=== PATIENT | female | born 1945 | race Caucasian/White ===

== ENCOUNTER 2019-07-01 20:15 | Inpatient (IN) | payer MEDICARE ==
--- NOTE | 2019-07-01 21:09 | ED ---
Influenza-Like Illness - HPI Summary HPI Summary: Patient complains of general weakness, lightheadedness, productive cough, bilateral upper abdominal pain, decreased by mouth intake, persistent nausea or vomiting 4 days. Recently diagnosed with pneumonia at [place] and started on Augmentin. Denies known fever, sore throat, headache, CP, SOB, change in urine , change in BM, vaginal symptoms. Medical history is HTN, chronic pain, anxiety , DM. Positive smoker. - History of Current Complaint Chief Complaint: EDGeneral Time Seen by Provider: 07/01/19 21:06 Hx Obtained From: Patient Onset/Duration: Gradual Onset, Lasting Days Severity: Moderate Associated Signs & Symptoms: Cough, Vomiting - Allergy/Home Medications Allergies/Adverse Reactions: Allergies Allergy/AdvReac Type Severity Reaction Status Date / Time fluoxetine Allergy Severe See Comment Verified 07/02/19 02:58 NSAIDS (Non-Steroidal Allergy Severe See Comment Verified 07/02/19 02:58 Anti-Inflamma sertraline Allergy Severe See Comment Verified 07/02/19 02:58 venlafaxine Allergy Severe See Comment Verified 07/02/19 02:58 MS Sulfa Drugs [Sulfa Drugs] Allergy Unknown Unknown Verified 07/01/19 23:40 Reaction Details novacain Allergy Severe Anaphylatic Uncoded 07/01/19 23:40 Shock sleep aide Allergy Severe renal Uncoded 07/01/19 23:40 Home Medications: Home Medications Amoxicillin 1 tab PO BID 07/02/19 [History Confirmed 07/02/19] Atorvastatin* [Lipitor*] 80 mg PO 1700 07/02/19 [History Confirmed 07/02/19] Lisinopril/Hydrochlorothiazide [Lisinopril-Hctz 20-12.5 mg Tab] 1 each PO DAILY 07/02/19 [History Confirmed 07/02/19] Torsemide 5 mg PO DAILY 07/02/19 [History Confirmed 07/02/19] metFORMIN* [Glucophage 500 MG TAB *] 500 mg PO DAILY 07/02/19 [History Confirmed 07/02/19] PMH/Surg Hx/FS Hx/Imm Hx Endocrine/Hematology History: Reports: Hx Diabetes - "PRE DIABETES" Denies: Hx Thyroid Disease Cardiovascular History: Reports: Hx Hypertension - since [place] Respiratory History: Reports: Hx Asthma History: Denies: Hx Dialysis Musculoskeletal History: Reports: Hx Arthritis, Hx Back Problems Sensory History: Reports: Hx Contacts or Glasses Opthamlomology History: Reports: Hx Contacts or Glasses EENT History: Denies: Hx Deafness Neurological History: Denies: Hx Dementia - Cancer History Cancer Type, 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 [place] in Uterus (cancerous) Hx Anesthesia Reactions: No Infectious Disease History: No Infectious Disease History: Denies: Traveled Outside the [place] in Last 30 Days - Family History Known Family History: Positive: Non-Contributory - Social History Alcohol Use: Rare Substance Use Type: Reports: None Smoking Status (MU): Never Smoked Tobacco Review of Systems Constitutional: Negative Eyes: Negative ENT: Negative Cardiovascular: Negative Respiratory: Negative Positive: Abdominal Pain, Vomiting, Nausea Genitourinary: Negative Musculoskeletal: Negative Skin: Negative Positive: Weakness Psychological: Normal All Other Systems Reviewed And Are Negative: Yes Physical Exam - Summary Physical Exam Summary: Tender in the upper quadrants of abdomen. Abdominal exam otherwise unremarkable. Lung sounds clear to auscultation bilaterally. RRR. Nuero exam normal. Triage Information Reviewed: Yes Vital Signs On Initial Exam: Initial Vitals Temp Pulse Resp BP Pulse Ox 97.4 F 104 18 89/51 96 07/01/19 20:29 07/01/19 20:29 07/01/19 20:29 07/01/19 20:29 07/01/19 20:29 Vital Signs Reviewed: Yes Appearance: Positive: Well-Appearing Skin: Positive: Warm Head/Face: Positive: Normal Head/Face Inspection Eyes: Positive: Normal Neck: Positive: Supple Respiratory/Lung Sounds: Positive: Clear to Auscultation Cardiovascular: Positive: Normal Abdomen Description: Positive: Other: Musculoskeletal: Positive: Normal Neurological: Positive: Normal Psychiatric: Positive: Normal AVPU Assessment: Alert - Rolette Coma Scale Best Eye Response: 4 - Spontaneous Best Motor Response: 6 - Obeys Commands Best Verbal Response: 5 - Oriented Coma Scale Total: 15 Procedures - Sedation Patient Received Moderate/Deep Sedation with Procedure: No Diagnostics - Vital Signs Vital Signs Temp Pulse Resp BP Pulse Ox 07/01/19 20:29 97.4 F 104 18 89/51 96 - Laboratory Result Diagrams: 07/02/19 09:31 07/02/19 06:51 Lab Statement: Any lab studies that have been ordered have been reviewed, and results considered in the medical decision making process. Flu Symptom Course/Dx - Course Course Of Treatment: Patient complains of general weakness, lightheadedness, productive cough, bilateral upper abdominal pain, decreased by mouth intake, persistent nausea or vomiting 4 days. Recently diagnosed with pneumonia at [place] and started on Augmentin. Denies known fever, sore throat, headache, CP , SOB, change in urine, change in BM, vaginal symptoms. Medical history is HTN , chronic pain, anxiety, DM. Positive smoker. Heart rate 104. Initial blood pressure 89/51. Labs otherwise unremarkable. WBC 12.6. Lactic 3.1. CRP 10. Creatinine 2.16. Troponins 0.082. Anion gap 12. Labs otherwise unremarkable. Chest x-ray negative. Ultrasound gallbladder negative. CT abdomen and pelvis negative. EKG sinus rhythm, heart rate 91, new onset ST depressions V4 through V6. Flu Negative. Admitted to Hospitalist. - Diagnoses Provider Diagnoses: Elevated troponin, Acute kidney injury, Systemic inflammatory response syndrome (SIRS) Discharge ED - Sign-Out/Discharge Documenting (check all that apply): Patient Departure - Discharge Plan Condition: Fair Disposition: ADMITTED TO [facility] - Billing Disposition and Condition Condition: FAIR Disposition: Admitted to [facility]
[2019-07-01] MEDS ORDERED: NS 0.9% 1000 ML** 1,000 ML IV ONE ×3 (21:22→22:53)
[2019-07-01] MEDS ORDERED: Ondansetron INJ* 2 MG/ML VIAL IV ONE (21:22)
[2019-07-01 21:49] LABS: Hematocrit 46 % (35-47); Hemoglobin 15.6 g/dL (12.0-16.0); Mean Corpuscular HGB Conc 34 g/dL (31-36); Mean Corpuscular Hemoglobin 35 pg (27-31); Mean Corpuscular Volume 102 fL (80-97); Mean Platelet Volume 9.7 fL (7.4-10.4); Platelet Count 127 10^3/uL (150-450); Red Blood Count 4.52 10^6 /uL (3.70-4.87); Red Cell Distribution Width 14 % (10-15); White Blood Count 12.6 10^3/uL (3.5-10.8)
[2019-07-01 22:01] LABS: INR 1.08 (0.82-1.09)
[2019-07-01 22:05] LABS: ALT 15 U/L (7-52); AST 33 U/L (13-39); Albumin 3.8 g/dL (3.2-5.2); Alkaline Phosphatase 84 U/L (34-104); Anion Gap 12 mmol/L (2-11); BUN/Creatinine Ratio 23.1 (8-20); Blood Urea Nitrogen 50 mg/dL (6-24); C Reactive Protein 10.15 mg/L (<8.01); CO2 Carbon Dioxide 24 mmol/L (22-32); Calcium 11.2 mg/dL (8.6-10.3); Chloride 104 mmol/L (101-111); EGFR Non-African American 22.3 (>60); Globulin 3.8 g/dL (2-4); Glucose 130 mg/dL (70-100); Potassium 3.7 mmol/L (3.5-5.0); Sodium 140 mmol/L (135-145); Total Protein 7.6 g/dL (6.4-8.9)
[2019-07-01 22:10] LABS: Troponin I 0.08 ng/mL (<0.03)
[2019-07-01 22:13] LABS: ABS Eosinophils 0.1 10^3/ul (0-0.6); ABS Monocytes 2.1 10^3/ul (0-0.8); ABS Neutrophils 7.4 10^3/ul (1.5-7.7); Eosinophil % 0.5 %; Lymphocyte % 23.6 %; Nucleated Red Blood Cells % 0.1
[2019-07-01 22:31] LABS: TSH (Thyroid Stimulating Horm) 0.62 mcIU/mL (0.34-5.60)
[2019-07-01 23:11] LABS: Troponin I 0.08 ng/mL (<0.03)
[2019-07-02 00:24] LABS: Erythrocyte Sed Rate 25 mm/Hr (0-29)
[2019-07-02 01:01] LABS: Urine Appearance Clear; Urine Bilirubin Negative (Negative); Urine Blood 1+ (Negative); Urine Color Yellow; Urine Glucose Negative (Negative); Urine Ketones Negative (Negative); Urine Nitrite Negative (Negative); Urine Protein Negative (Negative); Urine Urobilinogen Negative (Negative)
[2019-07-02 01:05] LABS: Urine Bacteria 1+ (Absent); Urine Red Blood Cell Trace(0-2/hpf) (Absent); Urine Squamous Epithelial Cell Present (Absent); Urine White Blood Cell Trace(0-5/hpf) (Absent)
[2019-07-02] MEDS ORDERED: cefTRIAXone(*) 1 GM in NS 0.9% 50 ML* 50 ML IVPB ONE (01:55)
[2019-07-02 02:03] LABS: Troponin I 0.08 ng/mL (<0.03)
[2019-07-02 02:32] LABS: Anion Gap 11 mmol/L (2-11); CO2 Carbon Dioxide 23 mmol/L (22-32); Calcium 9.6 mg/dL (8.6-10.3); Chloride 108 mmol/L (101-111); Sodium 142 mmol/L (135-145)
[2019-07-02 02:37] LABS: BUN/Creatinine Ratio 23.7 (8-20); Blood Urea Nitrogen 44 mg/dL (6-24); EGFR African American 32.1 (>60); EGFR Non-African American 26.6 (>60); Glucose 114 mg/dL (70-100)
[2019-07-02 03:40] LABS: Influenza A Molecular Negative (Negative); Influenza B Molecular Negative (Negative)
[2019-07-02] MEDS: traMADol TAB* 50 MG PO SCH ×4 (05:01→21:37)
[2019-07-02] MEDS: Hydrocodone/Acetamin 10/325 MG 1 TAB PO SCH ×5 (05:01→21:35)
[2019-07-02] MEDS: Heparin VIAL(*) 5000 UNITS/ML VIAL (FIVE THOUSAND) SUBCUT SCH ×3 (05:02→21:38)
[2019-07-02] MEDS: NS 0.9% 1000 ML** 1,000 ML IV SCH ×2 (05:02→21:40)
[2019-07-02 05:08] LABS: HDL Cholesterol 23.8 mg/dL
[2019-07-02 05:14] LABS: Troponin I 0.09 ng/mL (<0.03)
[2019-07-02] MEDS ORDERED: NS 0.9% 1000 ML** 1,000 ML IV ONE (05:28)
--- NOTE | 2019-07-02 05:33 | HP ---
CC: Dr. Simi Mcclain * ADMISSION HISTORY AND PHYSICAL: DATE OF ADMISSION: 07/02/19 PRIMARY CARE PHYSICIAN: Dr. Mcclain. CHIEF COMPLAINT: Generalized weakness. HISTORY OF PRESENT ILLNESS: This is a 74-year-old female with past medical history of morbid obesity; coronary artery disease, status post 6-vessel bypass graft in 2000 with what sounds like hereditary homocystinemia; hyperlipidemia; congestive heart failure; prediabetes, on metformin; chronic back pain, on multiple pain medications, was in her usual state of health up until April. In April, she was notified that she had bedbugs and she had it exterminated; however, the senior housing facility that she stays at threatened to evict her and since then she has been more depressed and has had decreased p.o. intake due to increased stress from threats of eviction. She had an episode of vomiting on Monday last week, and on , she was diagnosed with possible pneumonia at her doctor's office and was prescribed some amoxicillin. However, since the episode on Monday of vomiting, she has had decreased p.o. intake according to the friend and her neighbor Ms. Gricel Thomas, who was present at the bedside. The patient only had about 2 to 3 Ensure since the last week and 1 or 2 TV dinners. The patient also has been having diffuse abdominal pain, but no more episodes of vomiting. No other episodes of diarrhea. No urinary burning sensation or pain with urination. She has been having worsening back pain and back cramping, which is accompanied by some numbness in her feet, which has been ongoing since April as well. The patient overall has been a vague historian and keeps changing the time length on some of her symptoms stating anywhere from they started days ago to weeks and after repeat questioning states everything back to April. The patient otherwise denies any chest pain or palpitations or any other sick contacts or any fever, chills. She did have some cough which was diagnosed as pneumonia as of about a week ago and finished a 6-day course of amoxicillin that she was prescribed by Dr. Mcclain. PAST MEDICAL HISTORY: As mentioned, 1. Coronary artery disease with 6-vessel bypass graft, thought to be due to homocystinemia. 2. Hyperlipidemia. 3. Anxiety. 4. Insomnia. 5. Congestive heart failure based on the home medication of torsemide. 6. Chronic back pain with multiple opiate based pain medications. 7. Prediabetes, on metformin at home. 8. She has also had a history of acute kidney injury due to nonsteroidal anti- inflammatory medications in 2012, which has since then resolved. 9. 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 PAST SURGICAL HISTORY: Includes, 1. Coronary artery bypass graft, which was a 6-vessel bypass graft. 2. Left knee arthroscopy, which she states needs to be replaced. 3. A dropped lung in the right after her bypass surgery in 2000. HOME MEDICATIONS: The patient is currently on, 1. Amoxicillin 800 mg 1 tablet oral b.i.d.. 2. Ultram 100 mg p.o. q.6 hours. 3. Lisinopril/hydrochlorothiazide 1 tablet oral daily. 4. Lipitor 80 mg daily. 5. Metformin 500 mg oral daily. 6. Ambien 10 mg p.o. at bedtime p.r.n. 7. Colace 100 mg oral daily. 8. Folvite 1 tablet oral daily. 9. Aspirin 81 mg oral daily. 10. Torsemide 5 mg oral daily. 11. Norvasc 5 mg oral daily. 12. Lopressor 100 mg p.o. b.i.d.. 13. [place] 10/325 mg oral q.i.d. ALLERGIES: The patient is allergic multiple medications including ETODOLAC and IBUPROFEN, which were both NSAIDs, which cause renal damage. PROZAC, SERTRALINE and EFFEXOR cause nightmares. ROFECOXIB causes cardiac problem. SULFA ANTIBIOTICS causes unknown reaction, and NOVOCAINE cause anaphylactic shock and SLEEP AID also causes her to have renal problem. FAMILY HISTORY: Positive for mother, who of heart disease at age 44 and father of lung cancer in his 70s. SOCIAL HISTORY: Denies any smoking, alcohol, or drug use. 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 She is currently retired and and lives alone in a senior housing. She designates her daughter Yohana Delgado as her healthcare proxy, and also wanted Gricel Thomas, her neighbor, as secondary healthcare proxy as well. Gricel was at bedside and gave her number to be . She also requested to be a full code. REVIEW OF SYSTEMS: A 14-point review of systems did not reveal any information other than what is mentioned in the HPI. PHYSICAL EXAMINATION GENERAL: The patient is awake, alert, oriented x3, does not appear to be in any acute distress. VITAL SIGNS: Temperature was noted to be 97.4, BP was noted to be 82/70, heart rate 94, respiration rate 23, saturating 96% on room air. HEAD AND NECK: Atraumatic, normocephalic. Bilateral pupils reactive. Oral mucosa was moist. Neck supple. No jugular venous distention. LUNGS: Clear to auscultation bilaterally. No wheezing, rhonchi or rales. HEART: S1, S2. Regular rate and rhythm. ABDOMEN: Soft, nontender, nondistended. EXTREMITIES: No cyanosis, clubbing or edema. LABORATORY DATA AND DIAGNOSTIC STUDIES: CBC shows minimally elevated white count at 12.6, hemoglobin and hematocrit stable, platelet count was minimally decreased at 127. Coagulation profile shows INR of 1.08. Comprehensive metabolic panel was significant for elevated BUN at 50 and creatinine elevated at 2.16. BUN and creatinine ratio was noted to be 23.1. Lactic acid elevated at 3.1. Calcium elevated at 11.2. Troponin was elevated at 0.08. C-reactive protein elevated at 10.15. Rest of the LFTs were within normal limits. Urinalysis was positive for leuk esterase, negative for any nitrite, positive for blood, and multiple hyaline casts were also present. CT chest, abdomen, and pelvis was read essentially as no CT pathology of the chest and there is colonic diverticulosis without evidence of acute diverticulitis in the abdomen and no other acute pathology in the abdomen is also noted. Gallbladder ultrasound was showing no acute sonographic pathology as well. EKG showed some ST segment depression in leads I, II and lateral lead as well, which was not present in the old EKG from 2013. IMPRESSION: This is a 74-year-old female with a history of coronary artery disease, status post multivessel bypass disease; hypertension; dyslipidemia; prediabetes, here with decreased p.o. intake for over a week and noted to have generalized weakness, acute kidney injury, and minimally elevated troponin with diffuse ST-segment depression on EKG. ASSESSMENT AND PLAN: 1. Generalized weakness, likely secondary to dehydration. We will get physical therapy evaluation after IV hydration. 2. Acute kidney injury, likely secondary to dehydration. Continue IV fluids. The patient's repeat creatinine is already showing much significant improvement from her baseline. 3. Lactic acidosis secondary to dehydration. Continue with IV hydration. 4. Elevated troponin with EKG changes. We will consider cardiology consult and an echocardiogram to evaluate for overall cardiac status, although it is possible that the patient's elevated troponin is due to her renal dysfunction and decreased clearance of troponin rather than a significant elevation from cardiac disease. Rest of the treatment plan regarding this status would be based on family nurse's input to see if the patient would benefit from any stress test. 5. History of hypertension, but currently hypotensive. We will continue with IV hydration. We can consider holding her BP medications. 6. History of congestive heart failure, currently not in failure. Follow up echocardiogram. 7. History of prediabetes. We will check an A1c level and hold metformin in light of acute kidney injury. Sugars are not elevated enough to warrant any insulin at this point or fingerstick monitoring. 8. History of dyslipidemia. Continue statin and check a lipid profile fasting in the morning. 9. History of chronic back pain. We will continue home pain medications. 10. DVT prophylaxis with subcu heparin. 11. Code status: The patient wishes to be a full code and primary surrogate decision maker would be her daughter Yohana and secondary would be her neighbor Gricel. [id number]/[facility] #: [id number] MILES
[2019-07-02 07:21] LABS: BUN/Creatinine Ratio 22.3 (8-20); EGFR African American 32.5 (>60); EGFR Non-African American 26.9 (>60); Potassium 3.4 mmol/L (3.5-5.0)
[2019-07-02] MEDS ORDERED: Perflutren Lipid Microsphere* 3 ML VIAL ONE (08:24)
[2019-07-02 09:42] LABS: Hematocrit 44 % (35-47); Hemoglobin 14.9 g/dL (12.0-16.0); Mean Corpuscular HGB Conc 34 g/dL (31-36); Mean Corpuscular Hemoglobin 34 pg (27-31); Mean Corpuscular Volume 101 fL (80-97); Mean Platelet Volume 9.3 fL (7.4-10.4); Platelet Count 104 10^3/uL (150-450); Red Blood Count 4.35 10^6 /uL (3.70-4.87); Red Cell Distribution Width 14 % (10-15)
[2019-07-02 09:44] LABS: ABS Basophils 0.1 10^3/ul (0-0.2); ABS Eosinophils 0.1 10^3/ul (0-0.6); ABS Lymphocytes 3.4 10^3/ul (1.0-4.8); ABS Monocytes 2.2 10^3/ul (0-0.8); ABS Neutrophils 5.3 10^3/ul (1.5-7.7); Eosinophil % 1.2 %; Nucleated Red Blood Cells % 0.1
[2019-07-02] MEDS: Docusate CAP* 100 MG PO SCH (09:51)
[2019-07-02] MEDS: Aspirin 81 mg CHEW TAB* 81 MG TAB.CHEW PO SCH (09:52)
[2019-07-02] MEDS: Folic Acid TAB* 1 MG PO SCH (09:52)
[2019-07-02 10:20] LABS: Troponin I 0.08 ng/mL (<0.03)
[2019-07-02] MEDS: Metoprolol Tartrate TAB* 100 MG TAB PO SCH ×2 (10:43→21:23)
--- NOTE | 2019-07-02 11:24 | ECHO ---
*[facility]* [place] [address] Fax #: [phone] Transthoracic Echocardiogram Patient: Emily Joyce : 1945 Study Date: 07/02/2019 Age: 74 Gender: F HR: 98 bpm Height: 60 in /152.4 cm BSA: 2 m^2 Weight: 234.5 lb /106.6 kg BMI: 45.9 kg/m^2 *[employer]: * Divine Maldonado RDCS RN *Referring Physician: * Grupo Parekh *Reading Physician: * Timothy Mccabe MD Indications: Myocardial Infarction (new). History: Coronary artery disease. Risk factors: Hypertension. Diabetes mellitus. Obese. Labs, prior tests, procedures, and surgery: Coronary artery bypass grafting. Conclusions Summary: - Left ventricle: Systolic function is hyperdynamic. The estimated ejection fraction is 65-70%. Wall motion is normal; there are no regional wall motion abnormalities. - Mitral valve: There is trace to mild regurgitation. - Aortic valve: There is no evidence of stenosis. - Pericardium, extracardiac: There is no significant pericardial effusion. - Study data: No prior study is available for comparison. Study data: Transthoracic echocardiogram. Procedure: Transthoracic echocardiography was performed. Image quality was fair. The study was technically limited due to body habitus. Intravenous Definity 3 ml was administered to enhance imaging. Complete 2D, spectral Doppler, and color flow Doppler. Location: Bedside. Patient status: Inpatient. Patient room number: 446-01. No prior study is available for comparison. Rhythm: Normal sinus rhythm. Findings Left ventricle: The cavity size is normal. Wall thickness is mildly increased. Systolic function is hyperdynamic. The estimated ejection fraction is 65-70%. Wall motion is normal; there are no regional wall motion abnormalities. There is no consistent Doppler evidence of clinically significant diastolic dysfunction. Right ventricle: Not well visualized. Ventricular septum: Ventricular septal wall motion has a postoperative appearance. Left atrium: The atrium is normal in size. Right atrium: Not well visualized. The atrium is normal in size. Mitral valve: Not well visualized. The leaflets are mildly thickened. There is no evidence of stenosis. There is trace to mild regurgitation. Aortic valve: Not well visualized. The leaflets are mildly thickened. There is no evidence of stenosis. There is no significant regurgitation. Tricuspid valve: The leaflets are normal thickness. There is trace regurgitation. Pulmonic valve: Not well visualized. Aorta: Aortic root: The aortic root is not dilated. Ascending aorta: The ascending aorta is not visualized. Aortic arch: The aortic arch is not visualized. Pericardium: There is no significant pericardial effusion. Pulmonary arteries: Not well visualized. Systolic pressure can not be accurately estimated. Systemic veins: Inferior vena cava: Not well visualized. Measurements Left ventricle Value Ref Left atrium continued Value Ref STEPHANIE, LAX 3.8 cm 3.8 - 5.2 Vol/bsa, ES, 1-p 35 ml/m^2 11 - 40 PW, ED (H) 1.1 cm 0.6 - 0.9 A4C IVS/PW, ED 1.04 Vol/bsa, ES, A/L 32 ml/m^2 16 - 34 E', lat lucy, (L) 8.5 cm/sec >=10.0 TDI Right atrium Value Ref E/e', lat lucy, 10 SI dim, ES, A4C 5.3 cm 3.4 - TDI 5.3 E', med lucy, (L) 6.0 cm/sec >=7.0 TDI Aortic valve Value Ref E/e', med lucy, 14 Lucy diam, ED 2.5 cm ---- ---- TDI Peak v, S 1.3 m/sec -------- E', avg, TDI 7.3 cm/sec VTI, S 24.5 cm ---- ---- E/e', avg, TDI 12 <=14 Mean grad, S 4.0 mm Hg - ------- Peak grad, S 7.0 mm Hg -------- LVOT Value Ref LVOT/AV, VTI ratio 0.84 -------- Peak ni, S 1.14 m/sec VTI, S 20.6 cm Mitral valve Value Ref Peak grad, S 5 mm Hg Peak E 0.86 m/sec -------- Mean grad, S 3 mm Hg Peak A 1.01 m/sec -------- Decel time 275 ms -------- Ventricular septum Value Ref Peak grad, D 3.0 mm Hg -------- IVS, ED (H) 1.1 cm 0.6 - 0.9 Peak E/A ratio 0.9 -------- Left atrium Value Ref Aortic root Value Ref AP dim, ES (H) 4.40 cm 2.70 - Root diam 3.1 cm <4.1 3.80 ML dim, A4C 4.3 cm SI dim, A4C 5.4 cm Legend: (L) and (H) carmella values outside specified reference range. Prepared and electronically signed by Timothy Mccabe MD 07/02/2019 11:24
[2019-07-02] MEDS ORDERED: Regadenoson* 0.4 MG/5 ML SYRINGE ONE (13:01)
[2019-07-02] MEDS ORDERED: Aminophylline IV* 25 MG/ML 10 ML VIAL ONE (14:13)
[2019-07-02] MEDS: Atorvastatin* 80 MG TAB PO SCH (17:19)
--- NOTE | 2019-07-02 20:39 | CONS ---
CARDIOLOGY CONSULTATION: DATE OF CONSULT: 07/02/19 INDICATION FOR CONSULTATION: Coronary artery disease, weakness, abnormal troponin. HISTORY OF PRESENT ILLNESS: The patient is a 74-year-old female with a history coronary artery disease, coronary artery bypass surgery in 2000, congestive heart failure, diabetes, who has been under tremendous amount of stress recently. She is having issues with her current living condition and might need to move. The patient has been recently treated for pneumonia. The patient came to the emergency room because of chest pain, feeling poorly, and just not having any energy. In the emergency room, an EKG showed normal sinus rhythm with T-wave inversions in lead V2 through V6 which is new compared to EKG in 2013. The patient also had minimally elevated troponin level with peak troponin of 0.09. When I saw the patient this morning, she was very teary and very upset. Her living condition is quite stressful to her. She reports that she has had increase stress in her life, also has had significant fatigue. She denied any true anginal type symptoms. She said that occasionally she will feel fullness in her chest but is unclear when this occurs or how long it lasts. PAST MEDICAL HISTORY: Coronary artery disease, hyperlipidemia, anxiety, insomnia, diabetes. PAST SURGICAL HISTORY: Coronary artery bypass surgery in 2000, knee arthroscopy in the past. OUTPATIENT MEDICATIONS: 1. Amoxicillin 800 mg b.i.d. 2. Lisinopril/hydrochlorothiazide 1 tablet a day. 3. Lipitor 80 mg a day. 4. Metformin 500 mg a day. 5. Colace 100 mg a day. 6. Aspirin 81 mg a day. 7. Torsemide 5 mg a day. 8. Norvasc 5 mg a day. 9. Lopressor 100 mg b.i.d. 10. Narcotic pain medication. ALLERGIES: She is intolerant of PROZAC, EFFEXOR, SULFA MEDICATIONS, and IBUPROFEN. FAMILY HISTORY: History of early coronary artery disease in her mother and father. SOCIAL HISTORY: She is a retired teacher. She is a . She lives in senior housing. She denies tobacco or alcohol use. She does not get any regular exercise. REVIEW OF SYSTEMS: Negative for fever and chills. Positive for weight gain. Negative for changes in bowel or bladder habit. Other 12-point review is unremarkable. PHYSICAL EXAM: Height is 5 feet, weight 250 pounds, temperature 97.2, heart rate is 71, blood pressure 131/64, respiratory rate is 16, oxygen saturation 99 % on room air. Sclerae anicteric. Oropharynx is pink without erythema. Carotids are 2+ without bruits. JVD is normal. Thyroid is normal. Cardiac Exam: S1, S2 without any murmurs, rubs, or gallops. PMI is normal. Lungs are difficult to auscultate as the patient has difficulty sitting up. Anteriorly, her lungs are clear. Abdomen is obese, soft, nontender, nondistended with normoactive bowel sounds. Extremities show 1+ edema. She has 2+ pulses throughout. The patient is awake, alert, and oriented. She moves all 4 extremities equally. DIAGNOSTIC STUDIES/LAB DATA: Chemistries within normal limits. BUN 41, creatinine 1.8. AST and ALT are normal. TSH is 0.62. Again, peak troponin level is 0.09. CBC is within normal limits. The patient had an echocardiogram today which demonstrated normal LV size and systolic function. Ejection fraction is 65%. No significant valvular abnormalities. The patient had a chemical nuclear stress test today. Her stress images showed normal perfusion throughout the myocardium. I reviewed the images personally. IMPRESSION: This is a 74-year-old female with a history of coronary artery disease, coronary artery bypass surgery, who came to the hospital because of fatigue and mental stress. Her EKG did show changes from her previous EKG in 2012, she had a minimally elevated troponin level. Her cardiac workup is essentially unremarkable. Her echocardiogram is normal. Her stress test is normal. At this point, I do not think any medication changes are necessary from a cardiac standpoint. The patient's cardiac status appears to be stable. I would concentrate on her social issues and her housing. The patient will follow up with her primary care physician. [id number]/[facility] [place] #: [id number] MILES
[2019-07-02] MEDS: Zolpidem TAB* 10 MG PO PRN (22:08)
[2019-07-03] MEDS: traMADol TAB* 50 MG PO SCH ×4 (02:19→21:35)
[2019-07-03] MEDS: cefTRIAXone(*) 1 GM in NS 0.9% 50 ML* 50 ML IVPB SCH (02:20)
[2019-07-03] MEDS: Heparin VIAL(*) 5000 UNITS/ML VIAL (FIVE THOUSAND) SUBCUT SCH ×3 (05:37→21:39)
[2019-07-03 05:43] LABS: BUN/Creatinine Ratio 18.8 (8-20); Calcium 8.9 mg/dL (8.6-10.3); EGFR African American 41.5 (>60); EGFR Non-African American 34.3 (>60); Potassium 3.6 mmol/L (3.5-5.0)
[2019-07-03 06:02] LABS: ABS Eosinophils 0.4 10^3/ul (0-0.6); ABS Lymphocytes 2.2 10^3/ul (1.0-4.8); ABS Monocytes 1.8 10^3/ul (0-0.8); ABS Neutrophils 3.1 10^3/ul (1.5-7.7); Eosinophil % 5.4 %; Hematocrit 37 % (35-47); Hemoglobin 12.3 g/dL (12.0-16.0); Lymphocyte % 29.4 %; Mean Corpuscular HGB Conc 34 g/dL (31-36); Mean Corpuscular Hemoglobin 34 pg (27-31); Mean Corpuscular Volume 102 fL (80-97); Mean Platelet Volume 9.4 fL (7.4-10.4); Platelet Count 87 10^3/uL (150-450); Red Blood Count 3.58 10^6 /uL (3.70-4.87); Red Cell Distribution Width 14 % (10-15); White Blood Count 7.5 10^3/uL (3.5-10.8)
[2019-07-03] MEDS: Aspirin 81 mg CHEW TAB* 81 MG TAB.CHEW PO SCH (08:25)
[2019-07-03] MEDS: Folic Acid TAB* 1 MG PO SCH (08:25)
[2019-07-03] MEDS: Docusate CAP* 100 MG PO SCH (08:25)
[2019-07-03] MEDS: Metoprolol Tartrate TAB* 100 MG TAB PO SCH ×2 (08:25→21:35)
[2019-07-03] MEDS: Hydrocodone/Acetamin 10/325 MG 1 TAB PO SCH ×4 (08:25→21:36)
--- NOTE | 2019-07-03 14:51 | PN ---
Subjective Date of Service: 07/03/19 Interval History: Ms. Joyce states that she feels "calmer" and is resting better. She states that her weakness if improved, although still present. She denies cough, fever, chills. She denies abd pain, n/v/d, dysuria, urinary frequency, urgency, retention. She is concerned about her living situation and believes that her landlord is attempting to evict her. She states she is feeling depressed, although improved from the day prior. No other complaints today. Objective Active Medications: Hydrocodone Bitart/Acetaminophen ([place] 10/325 (Nf)) [address] [facility] Last Admin: 07/03/19 13:03 Dose: 1 tab Aspirin (Aspirin 81 Mg Chew Tab*) [address] [facility] Last Admin: 07/03/19 08:25 Dose: 81 mg Atorvastatin Calcium (Lipitor*) [address] [facility] Last Admin: 07/02/19 17:19 Dose: 80 mg Docusate Sodium (Colace Cap*) [address] [facility] Last Admin: 07/03/19 08:25 Dose: 100 mg Folic Acid (Folvite Tab*) [address] [facility] Last Admin: 07/03/19 08:25 Dose: 1 mg Heparin Sodium (Porcine) (Heparin Vial(*)) 5,[address] [facility] Last Admin: 07/03/19 13:03 Dose: 5,000 units Sodium Chloride (Ns 0.9% 1000 Ml) 1,000 mls @ 100 mls/hr IV PER RATE [facility] Last Admin: 07/02/19 21:40 Dose: 100 mls/hr Ceftriaxone Sodium 1 gm/ (Sodium Chloride) 50 mls @ 100 mls/hr IVPB Q24H [facility] Last Admin: 07/03/19 02:20 Dose: 100 mls/hr Metoprolol Tartrate (Lopressor Tab*) [address] [facility] Last Admin: 07/03/19 08:25 Dose: 100 mg Tramadol HCl (Ultram*) [address] [facility] Last Admin: 07/03/19 14:26 Dose: 50 mg Zolpidem Tartrate (Ambien Tab*) 10 mg PO BEDTIME PRN PRN Reason: SLEEP Last Admin: 07/02/19 22:08 Dose: 10 mg Vital Signs: Temp Pulse Resp BP Pulse Ox 98.2 F 73 16 105/51 97 07/03/19 15:00 07/03/19 15:00 07/03/19 16:13 07/03/19 15:00 07/03/19 15:00 Oxygen Devices in Use Now: None Appearance: Ms. Joyce is an obese elderly white female who is sitting up in bed. She is resting comfortable and appears to be in no acute distress, although she is very tearful during our discussion. Eyes: No Scleral Icterus, PERRLA Ears/Nose/Mouth/Throat: NL Teeth, Lips, Gums, Clear Oropharnyx, Mucous Membranes Moist Neck: NL Appearance and Movements; NL JVP, Trachea Midline Respiratory: Symmetrical Chest Expansion and Respiratory Effort, Clear to Auscultation Cardiovascular: NL Sounds; No Murmurs; No JVD, RRR, No Edema Abdominal: NL Sounds; No Tenderness; No Distention, No Hepatosplenomegaly Extremities: No Edema, No Clubbing, Cyanosis Neurological: Alert and Oriented x 3 Result Diagrams: 07/03/19 05:01 07/03/19 05:01 Microbiology and Other Data: Microbiology 07/02/19 00:15 Urine Culture - Preliminary Urine Escherichia Coli 07/01/19 21:40 Aerobic Blood Culture - Preliminary Blood Venous No Growth Day 1 Anaerobic Blood Culture - Preliminary No Growth Day 1 07/01/19 21:40 Aerobic Blood Culture - Preliminary Blood Venous No Growth Day 1 Anaerobic Blood Culture - Preliminary No Growth Day 1 Assess/Plan/Problems-Billing Assessment: 74yof PMHx CAD 6 vessel CABG, HLD, anxiety, diagnosed with pre-diabetes treated with Metformin presented to the ER with generalized weakness, elevated troponins , ANTWAN, lactic acidosis. - Patient Problems (1) Generalized weakness Comment: -pt presents with generalized weakness, decreased appetite, depression -likely due to deconditioning with superimposed dehydration -PT working with patient- recommends [facility] -placement pending (2) ANTWAN (acute kidney injury) Comment: -pt presents with ANTWAN; has improved some with hydration -suspect pre-renal due to dehydration -possibly with underlying CKD -continue to monitor with IVF administration (3) Elevated troponin Comment: -troponin stable at 0.08-0.09 -EKG with mild ST depression I, II, avF, V2-V3 -denies CP -Echo: EF 65-70% without evidence of diastolic dysfunction or RWMA -ST: no defects or RWMA, low risk -cardiology consulted; thank you for recommendations, as follows: no indication for med change, cardiac status appears stable (4) Lactic acidosis Comment: -pt presents with lactic acidosis -no source of infection -afebrile, mild leukocytosis (resolved) -BC NGTD -suspect metformin; d/c metformin (5) Depression Comment: -frequently tearful throughout interview -suggest SSRI, and patient is agreeable -trial of Lexapro, starting today (6) Thrombocytopenia Comment: -no signs of bleeding -continue to monitor (7) Abnormal urinalysis Comment: -1+ LE, 1+ bacteria -UC shows E. coli, moderated CFU -pt asymptomatic -suspect colonization, therefore treatment not indicated (8) Eviction from dwelling Comment: -pt reports she is in process of being evicted -SW involved in care (9) CAD (coronary artery disease) Comment: -continue home asa, atorvastatin, metoprolol (10) Pre-diabetes Comment: -recent HA1c 6.0 -reportedly on metformin for pre-diabetes -will d/c this medication, as it is the suspected cause of lactic acidosis (11) Hyperlipidemia Comment: -continue atorvastatin (12) DVT prophylaxis Comment: -HSQ (13) Full code status Status and Disposition: Inpatient. Plan for d/c to [facility].
[2019-07-03] MEDS: Atorvastatin* 80 MG TAB PO SCH (16:12)
[2019-07-03] MEDS: Zolpidem TAB* 10 MG PO PRN (21:36)
[2019-07-04] MEDS: NS 0.9% 1000 ML** 1,000 ML IV SCH ×3 (00:36→23:56)
[2019-07-04] MEDS: traMADol TAB* 50 MG PO SCH ×4 (03:09→20:06)
[2019-07-04] MEDS: cefTRIAXone(*) 1 GM in NS 0.9% 50 ML* 50 ML IVPB SCH (03:10)
[2019-07-04] MEDS: Heparin VIAL(*) 5000 UNITS/ML VIAL (FIVE THOUSAND) SUBCUT SCH ×3 (05:30→20:07)
[2019-07-04 06:28] LABS: ABS Eosinophils 0.5 10^3/ul (0-0.6); ABS Lymphocytes 3.1 10^3/ul (1.0-4.8); ABS Monocytes 1.7 10^3/ul (0-0.8); ABS Neutrophils 2.9 10^3/ul (1.5-7.7); Eosinophil % 5.5 %; Hematocrit 37 % (35-47); Hemoglobin 12.1 g/dL (12.0-16.0); Lymphocyte % 38.1 %; Mean Corpuscular HGB Conc 33 g/dL (31-36); Mean Corpuscular Hemoglobin 34 pg (27-31); Mean Corpuscular Volume 104 fL (80-97); Nucleated Red Blood Cells % 0.2; Platelet Count 87 10^3/uL (150-450); Red Blood Count 3.52 10^6 /uL (3.70-4.87); Red Cell Distribution Width 14 % (10-15); White Blood Count 8.3 10^3/uL (3.5-10.8)
[2019-07-04 06:45] LABS: BUN/Creatinine Ratio 20.3 (8-20); Calcium 8.4 mg/dL (8.6-10.3); EGFR African American 49.5 (>60); EGFR Non-African American 40.9 (>60); Potassium 3.9 mmol/L (3.5-5.0)
[2019-07-04] MEDS: Escitalopram * 10 MG TAB PO SCH (08:13)
[2019-07-04] MEDS: Docusate CAP* 100 MG PO SCH (08:13)
[2019-07-04] MEDS: Folic Acid TAB* 1 MG PO SCH (08:13)
[2019-07-04] MEDS: Metoprolol Tartrate TAB* 100 MG TAB PO SCH ×2 (08:13→20:07)
[2019-07-04] MEDS: Hydrocodone/Acetamin 10/325 MG 1 TAB PO SCH ×4 (08:14→20:07)
[2019-07-04] MEDS: Aspirin 81 mg CHEW TAB* 81 MG TAB.CHEW PO SCH (08:14)
--- NOTE | 2019-07-04 15:59 | PN ---
Subjective Date of Service: 07/04/19 Interval History: Ms. Joyce was ambulating today. She reports that she is tired. She denies CP, but does c/o b/l LE fatigue at bedtime last night, which as since subsided. She continues to c/o some weakness, but notes improvement from admission. She started Lexapro this a.m., and has had no AE thus far. Objective Active Medications: Hydrocodone Bitart/Acetaminophen ([place] 10/325 (Nf)) 1 tab PO QID [facility] Last Admin: 07/04/19 12:06 Dose: 1 tab Aspirin (Aspirin 81 Mg Chew Tab*) 81 mg PO DAILY [facility] Last Admin: 07/04/19 08:14 Dose: 81 mg Atorvastatin Calcium (Lipitor*) 80 mg PO 1700 [facility] Last Admin: 07/03/19 16:12 Dose: 80 mg Docusate Sodium (Colace Cap*) 100 mg PO DAILY [facility] Last Admin: 07/04/19 08:13 Dose: 100 mg Escitalopram Oxalate (Lexapro *) 10 mg PO DAILY [facility] Last Admin: 07/04/19 08:13 Dose: 10 mg Folic Acid (Folvite Tab*) 1 mg PO DAILY [facility] Last Admin: 07/04/19 08:13 Dose: 1 mg Heparin Sodium (Porcine) (Heparin Vial(*)) 5,000 units SUBCUT Q8HR [facility] Last Admin: 07/04/19 12:06 Dose: 5,000 units Sodium Chloride (Ns 0.9% 1000 Ml) 1,000 mls @ 100 mls/hr IV PER RATE [facility] Last Admin: 07/04/19 12:06 Dose: 100 mls/hr Metoprolol Tartrate (Lopressor Tab*) 100 mg PO BID [facility] Last Admin: 07/04/19 08:13 Dose: 100 mg Tramadol HCl (Ultram*) 50 mg PO Q6H [facility] Last Admin: 07/04/19 14:05 Dose: 50 mg Zolpidem Tartrate (Ambien Tab*) 10 mg PO BEDTIME PRN PRN Reason: SLEEP Last Admin: 07/03/19 21:36 Dose: 10 mg Vital Signs: Temp Pulse Resp BP Pulse Ox 97.9 F 60 16 97/46 95 07/04/19 11:00 07/04/19 11:00 07/04/19 14:06 07/04/19 11:00 07/04/19 11:00 Oxygen Devices in Use Now: None Appearance: Ms. Joyce is an elderly white female who is laying flat in bed. She is breathing comfortably, in no acute distress. Intermittently tearful. Eyes: No Scleral Icterus, PERRLA Ears/Nose/Mouth/Throat: NL Teeth, Lips, Gums, Clear Oropharnyx, Mucous Membranes Moist Neck: NL Appearance and Movements; NL JVP, Trachea Midline Respiratory: Symmetrical Chest Expansion and Respiratory Effort, Clear to Auscultation Cardiovascular: NL Sounds; No Murmurs; No JVD, RRR, No Edema Abdominal: NL Sounds; No Tenderness; No Distention, No Hepatosplenomegaly Extremities: No Edema, No Clubbing, Cyanosis Neurological: Alert and Oriented x 3 Result Diagrams: 07/04/19 06:07 07/04/19 06:07 Microbiology and Other Data: Microbiology 07/02/19 00:15 Urine Culture - Preliminary Urine Escherichia Coli 07/01/19 21:40 Aerobic Blood Culture - Preliminary Blood Venous No Growth Day 1 Anaerobic Blood Culture - Preliminary No Growth Day 1 07/01/19 21:40 Aerobic Blood Culture - Preliminary Blood Venous No Growth Day 1 Anaerobic Blood Culture - Preliminary No Growth Day 1 Assess/Plan/Problems-Billing Assessment: 74yof PMHx CAD 6 vessel CABG, HLD, anxiety, diagnosed with pre-diabetes treated with Metformin presented to the ER with generalized weakness, elevated troponins , ANTWAN, lactic acidosis. - Patient Problems (1) Generalized weakness Comment: -pt presents with generalized weakness, decreased appetite -likely due to deconditioning with superimposed dehydration and depression -PT working with patient- recommends [facility] -OT consult ordered -placement pending (2) ANTWAN (acute kidney injury) Comment: -pt presents with ANTWAN; has improved some with hydration -suspect pre-renal due to dehydration -possibly with underlying CKD, although rapid improvement with hydration -continue to monitor with IVF administration (3) Elevated troponin Comment: -troponin elevated, but stable at 0.08-0.09 -EKG with mild ST depression I, II, avF, V2-V3 -denies CP -Echo: EF 65-70% without evidence of diastolic dysfunction or RWMA -ST: no defects or RWMA, low risk -cardiology consulted; thank you for recommendations, as follows: no indication for med change, cardiac status appears stable (4) Lactic acidosis Comment: -resolved; lactic acid 1.1 -pt presents with lactic acidosis -no source of infection -afebrile, mild leukocytosis (resolved) -BC NGTD -suspect metformin; d/c metformin (5) Depression Comment: -frequently tearful throughout interview -suggest SSRI, and patient is agreeable, but concerned, as she has h/o nightmares with anti-depressants -trial of Lexapro, starting today (6) Thrombocytopenia Comment: -no signs of bleeding -probably partially dilutional -continue to monitor (7) Abnormal urinalysis Comment: -1+ LE, 1+ bacteria -UC shows E. coli, moderated CFU -pt asymptomatic -suspect colonization, therefore treatment not indicated (8) Eviction from dwelling Comment: -pt reports she is in process of being evicted -SW involved in care (9) CAD (coronary artery disease) Comment: -continue home asa, atorvastatin, metoprolol (10) Pre-diabetes Comment: -recent HA1c 6.0 -reportedly on metformin for pre-diabetes -will d/c this medication, as it is the suspected cause of lactic acidosis -no indication for need for furhter medication at this time -follow up with primary care provider for repeat HA1c in future (11) Hyperlipidemia Comment: -continue atorvastatin (12) DVT prophylaxis Comment: -HSQ (13) Full code status Status and Disposition: Inpatient. Plan for d/c to [facility].
[2019-07-04] MEDS: Atorvastatin* 80 MG TAB PO SCH (16:02)
[2019-07-04] MEDS: Zolpidem TAB* 10 MG PO PRN (23:56)
[2019-07-05] MEDS: traMADol TAB* 50 MG PO SCH ×4 (03:23→20:30)
[2019-07-05] MEDS: Heparin VIAL(*) 5000 UNITS/ML VIAL (FIVE THOUSAND) SUBCUT SCH ×2 (05:27→14:16)
[2019-07-05] MEDS: Docusate CAP* 100 MG PO SCH (08:30)
[2019-07-05] MEDS: Escitalopram * 10 MG TAB PO SCH (08:30)
[2019-07-05] MEDS: Folic Acid TAB* 1 MG PO SCH (08:30)
[2019-07-05] MEDS: Aspirin 81 mg CHEW TAB* 81 MG TAB.CHEW PO SCH (08:31)
[2019-07-05] MEDS: Hydrocodone/Acetamin 10/325 MG 1 TAB PO SCH ×4 (08:31→20:29)
[2019-07-05] MEDS: Metoprolol Tartrate TAB* 100 MG TAB PO SCH ×2 (08:31→20:30)
--- NOTE | 2019-07-05 13:55 | PN ---
Subjective Date of Service: 07/05/19 Interval History: Ms. Joyce states she is still tired, but is feeling less weak today. She has been up walking and is eating and drinking well. She feels that her mood has improved and denies nightmares. No other complaints today. Objective Active Medications: Hydrocodone Bitart/Acetaminophen ([place] 10/325 (Nf)) 1 tab PO QID [facility] Last Admin: 07/05/19 08:31 Dose: 1 tab Aspirin (Aspirin 81 Mg Chew Tab*) 81 mg PO DAILY [facility] Last Admin: 07/05/19 08:31 Dose: 81 mg Atorvastatin Calcium (Lipitor*) 80 mg PO 1700 [facility] Last Admin: 07/04/19 16:02 Dose: 80 mg Docusate Sodium (Colace Cap*) 100 mg PO DAILY [facility] Last Admin: 07/05/19 08:30 Dose: 100 mg Escitalopram Oxalate (Lexapro *) 10 mg PO DAILY [facility] Last Admin: 07/05/19 08:30 Dose: 10 mg Folic Acid (Folvite Tab*) 1 mg PO DAILY [facility] Last Admin: 07/05/19 08:30 Dose: 1 mg Heparin Sodium (Porcine) (Heparin Vial(*)) 5,000 units SUBCUT Q8HR [facility] Last Admin: 07/05/19 05:27 Dose: 5,000 units Sodium Chloride (Ns 0.9% 1000 Ml) 1,000 mls @ 100 mls/hr IV PER RATE [facility] Stop: 07/05/19 21:00 Last Admin: 07/04/19 23:56 Dose: 100 mls/hr Metoprolol Tartrate (Lopressor Tab*) 100 mg PO BID [facility] Last Admin: 07/05/19 08:31 Dose: 100 mg Tramadol HCl (Ultram*) 50 mg PO Q6H [facility] Last Admin: 07/05/19 08:31 Dose: 50 mg Zolpidem Tartrate (Ambien Tab*) 10 mg PO BEDTIME PRN PRN Reason: SLEEP Last Admin: 07/04/19 23:56 Dose: 10 mg Vital Signs: Temp Pulse Resp BP Pulse Ox 97.3 F 56 17 103/61 97 07/06/19 04:00 07/06/19 04:00 07/06/19 08:08 07/06/19 04:00 07/06/19 04:00 Oxygen Devices in Use Now: None Appearance: Ms. Joyce is an obese, elderly white female who is sitting up in recliner with LE at floor. She appears comfortable, in no acute distress. Eyes: No Scleral Icterus, PERRLA Ears/Nose/Mouth/Throat: NL Teeth, Lips, Gums, Clear Oropharnyx, Mucous Membranes Moist Neck: NL Appearance and Movements; NL JVP, Trachea Midline Respiratory: Symmetrical Chest Expansion and Respiratory Effort, Clear to Auscultation Cardiovascular: NL Sounds; No Murmurs; No JVD, RRR Abdominal: NL Sounds; No Tenderness; No Distention, No Hepatosplenomegaly Extremities: No Edema, No Clubbing, Cyanosis Neurological: Alert and Oriented x 3 Result Diagrams: 07/06/19 05:32 07/06/19 05:32 Microbiology and Other Data: Microbiology 07/02/19 00:15 Urine Culture - Preliminary Urine Escherichia Coli 07/01/19 21:40 Aerobic Blood Culture - Preliminary Blood Venous No Growth Day 1 Anaerobic Blood Culture - Preliminary No Growth Day 1 07/01/19 21:40 Aerobic Blood Culture - Preliminary Blood Venous No Growth Day 1 Anaerobic Blood Culture - Preliminary No Growth Day 1 Assess/Plan/Problems-Billing Assessment: 74yof PMHx CAD 6 vessel CABG, HLD, anxiety, diagnosed with pre-diabetes treated with Metformin presented to the ER with generalized weakness, elevated troponins , ANTWAN, lactic acidosis. - Patient Problems (1) Generalized weakness Comment: -pt presents with generalized weakness, decreased appetite -likely due to deconditioning with superimposed dehydration and depression -PT working with patient- recommends [facility] -continue PT/OT -placement pending (2) ANTWAN (acute kidney injury) Comment: -pt presents with ANTWAN; continues to improve with IV hydration -suspect pre-renal due to dehydration -possibly with underlying CKD, although low suspicion d/t continued improvement with hydration -continue to monitor with IVF administration (3) Elevated troponin Comment: -troponin elevated, but stable at 0.08-0.09 -EKG with mild ST depression I, II, avF, V2-V3 -denies CP -Echo: EF 65-70% without evidence of diastolic dysfunction or RWMA -ST: no defects or RWMA, low risk -cardiology consulted; thank you for recommendations, as follows: no indication for med change, cardiac status appears stable (4) Lactic acidosis Comment: -resolved; lactic acid 1.1 -pt presents with lactic acidosis -no source of infection -afebrile, mild leukocytosis (resolved) -BC NGTD -suspect metformin; d/c metformin (5) Depression Comment: -frequently tearful throughout interview -suggest SSRI, and patient is agreeable, but concerned, as she has h/o nightmares with anti-depressants -trial of Lexapro, starting today (6) Thrombocytopenia Comment: -no signs of bleeding -probably partially dilutional -continue to monitor (7) Abnormal urinalysis Comment: -1+ LE, 1+ bacteria -UC shows E. coli, moderated CFU -pt asymptomatic -suspect colonization, therefore treatment not indicated (8) Eviction from dwelling Comment: -pt reports she is in process of being evicted -SW involved in care (9) CAD (coronary artery disease) Comment: -continue home asa, atorvastatin, metoprolol (10) Pre-diabetes Comment: -recent HA1c 6.0 -reportedly on metformin for pre-diabetes -will d/c this medication, as it is the suspected cause of lactic acidosis -no indication for need for furhter medication at this time -follow up with primary care provider for repeat HA1c in future (11) Hyperlipidemia Comment: -continue atorvastatin (12) DVT prophylaxis Comment: -HSQ (13) Full code status Status and Disposition: Inpatient. Plan for d/c to [facility].
[2019-07-05] MEDS: Atorvastatin* 80 MG TAB PO SCH (17:57)
[2019-07-05] MEDS: NS 0.9% 1000 ML** 1,000 ML IV SCH (20:18)
[2019-07-05] MEDS: Enoxaparin(*) 40 MG/0.4 ML SYR SUBCUT SCH (20:29)
[2019-07-05] MEDS: Zolpidem TAB* 10 MG PO PRN (21:41)
[2019-07-06] MEDS: traMADol TAB* 50 MG PO SCH ×4 (04:31→20:57)
[2019-07-06 05:53] LABS: ABS Eosinophils 0.4 10^3/ul (0-0.6); ABS Lymphocytes 2.6 10^3/ul (1.0-4.8); ABS Monocytes 1.1 10^3/ul (0-0.8); ABS Neutrophils 2.2 10^3/ul (1.5-7.7); Eosinophil % 6.9 %; Hematocrit 34 % (35-47); Hemoglobin 11.3 g/dL (12.0-16.0); Mean Corpuscular HGB Conc 34 g/dL (31-36); Mean Corpuscular Hemoglobin 35 pg (27-31); Mean Corpuscular Volume 104 fL (80-97); Mean Platelet Volume 8.5 fL (7.4-10.4); Platelet Count 100 10^3/uL (150-450); Red Blood Count 3.23 10^6 /uL (3.70-4.87); Red Cell Distribution Width 14 % (10-15); White Blood Count 6.4 10^3/uL (3.5-10.8)
[2019-07-06 06:13] LABS: Calcium 8.4 mg/dL (8.6-10.3); Potassium 4.5 mmol/L (3.5-5.0)
[2019-07-06 06:19] LABS: EGFR African American 62.2 (>60); EGFR Non-African American 51.4 (>60)
[2019-07-06] MEDS: Metoprolol Tartrate TAB* 100 MG TAB PO SCH ×2 (08:07→20:57)
[2019-07-06] MEDS: Docusate CAP* 100 MG PO SCH (08:07)
[2019-07-06] MEDS: Hydrocodone/Acetamin 10/325 MG 1 TAB PO SCH ×4 (08:07→20:55)
[2019-07-06] MEDS: Aspirin 81 mg CHEW TAB* 81 MG TAB.CHEW PO SCH (08:07)
[2019-07-06] MEDS: Folic Acid TAB* 1 MG PO SCH (08:07)
[2019-07-06] MEDS: Escitalopram * 10 MG TAB PO SCH (08:07)
[2019-07-06] MEDS ORDERED: NS 0.9% 1000 ML** 1,000 ML IV SCH (08:30)
--- NOTE | 2019-07-06 17:36 | PN ---
Subjective Date of Service: 07/06/19 Interval History: Ms. Joyce c/o occasional cough and denies fever, chills, dysuria. She has some mild increased urinary frequency, which is attributed to increased IVF. She is eager for d/c to [facility]. No other complaints today. Objective Active Medications: Hydrocodone Bitart/Acetaminophen ([place] 10/325 (Nf)) 1 tab PO QID [facility] Last Admin: 07/06/19 13:34 Dose: 1 tab Aspirin (Aspirin 81 Mg Chew Tab*) 81 mg PO DAILY [facility] Last Admin: 07/06/19 08:07 Dose: 81 mg Atorvastatin Calcium (Lipitor*) 80 mg PO 1700 [facility] Last Admin: 07/05/19 17:57 Dose: 80 mg Docusate Sodium (Colace Cap*) 100 mg PO DAILY [facility] Last Admin: 07/06/19 08:07 Dose: 100 mg Enoxaparin Sodium (Lovenox(*)) 40 mg SUBCUT BEDTIME [facility] Last Admin: 07/05/19 20:29 Dose: 40 mg Escitalopram Oxalate (Lexapro *) 10 mg PO DAILY [facility] Last Admin: 07/06/19 08:07 Dose: 10 mg Folic Acid (Folvite Tab*) 1 mg PO DAILY [facility] Last Admin: 07/06/19 08:07 Dose: 1 mg Sodium Chloride (Ns 0.9% 1000 Ml) 1,000 mls @ 100 mls/hr IV PER RATE [facility] Stop: 07/06/19 18:29 Last Admin: 07/06/19 10:04 Dose: 100 mls/hr Metoprolol Tartrate (Lopressor Tab*) 100 mg PO BID [facility] Last Admin: 07/06/19 08:07 Dose: 100 mg Tramadol HCl (Ultram*) 50 mg PO Q6H [facility] Last Admin: 07/06/19 14:57 Dose: 50 mg Zolpidem Tartrate (Ambien Tab*) 10 mg PO BEDTIME PRN PRN Reason: SLEEP Last Admin: 07/05/19 21:41 Dose: 10 mg Vital Signs: Temp Pulse Resp BP Pulse Ox 97.1 F 53 16 100/48 97 07/06/19 15:44 07/06/19 15:44 07/06/19 15:44 07/06/19 15:44 07/06/19 15:44 Oxygen Devices in Use Now: None Appearance: Ms. Joyce is an obese elderly white female who is sitting up in bed. She appears to be in no acute distress. Occasionally tearful. Eyes: No Scleral Icterus, PERRLA Ears/Nose/Mouth/Throat: NL Teeth, Lips, Gums, Clear Oropharnyx, Mucous Membranes Moist Neck: NL Appearance and Movements; NL JVP, Trachea Midline Respiratory: Symmetrical Chest Expansion and Respiratory Effort, Clear to Auscultation Cardiovascular: NL Sounds; No Murmurs; No JVD, RRR, No Edema Abdominal: NL Sounds; No Tenderness; No Distention, No Hepatosplenomegaly Extremities: No Edema, No Clubbing, Cyanosis Neurological: Alert and Oriented x 3 Result Diagrams: 07/06/19 05:32 07/06/19 05:32 Microbiology and Other Data: Microbiology 07/02/19 00:15 Urine Culture - Preliminary Urine Escherichia Coli 07/01/19 21:40 Aerobic Blood Culture - Preliminary Blood Venous No Growth Day 1 Anaerobic Blood Culture - Preliminary No Growth Day 1 07/01/19 21:40 Aerobic Blood Culture - Preliminary Blood Venous No Growth Day 1 Anaerobic Blood Culture - Preliminary No Growth Day 1 Assess/Plan/Problems-Billing Assessment: 74yof PMHx CAD 6 vessel CABG, HLD, anxiety, diagnosed with pre-diabetes treated with Metformin presented to the ER with generalized weakness, elevated troponins , ANTWAN, lactic acidosis. - Patient Problems (1) Generalized weakness Comment: -pt presents with generalized weakness, decreased appetite -likely due to deconditioning with superimposed dehydration and depression -PT working with patient- recommends [facility] -continue PT/OT -placement pending (2) ANTWAN (acute kidney injury) Comment: -pt presents with ANTWAN; continues to improve with IV hydration -suspect pre-renal due to dehydration -possibly with underlying CKD, although low suspicion d/t continued improvement with hydration -continue to monitor with IVF administration (3) Elevated troponin Comment: -troponin elevated, but stable at 0.08-0.09 -EKG with mild ST depression I, II, avF, V2-V3 -denies CP -Echo: EF 65-70% without evidence of diastolic dysfunction or RWMA -ST: no defects or RWMA, low risk -cardiology consulted; thank you for recommendations, as follows: no indication for med change, cardiac status appears stable (4) Lactic acidosis Comment: -resolved; lactic acid 1.1 -pt presents with lactic acidosis -no source of infection -afebrile, mild leukocytosis (resolved) -BC NGTD -suspect metformin; d/c metformin (5) Depression Comment: -frequently tearful throughout interview -suggest SSRI, and patient is agreeable, but concerned, as she has h/o nightmares with anti-depressants -continue Lexapro (6) Thrombocytopenia Comment: -no signs of bleeding -probably partially dilutional -continue to monitor (7) Abnormal urinalysis Comment: -1+ LE, 1+ bacteria -UC shows E. coli, moderated CFU -pt asymptomatic -suspect colonization, therefore treatment not indicated (8) Eviction from dwelling Comment: -pt reports she is in process of being evicted -SW involved in care (9) Pre-diabetes Comment: -recent HA1c 6.0 -reportedly on metformin for pre-diabetes -will d/c this medication, as it is the suspected cause of lactic acidosis -no indication for need for furhter medication at this time -follow up with primary care provider for repeat HA1c in future (10) CAD (coronary artery disease) Comment: -continue home asa, atorvastatin, metoprolol (11) Hyperlipidemia Comment: -continue atorvastatin (12) DVT prophylaxis Comment: -HSQ (13) Full code status Status and Disposition: Inpatient. Plan for d/c to [facility].
[2019-07-06] MEDS: Atorvastatin* 80 MG TAB PO SCH (18:02)
[2019-07-06] MEDS: Enoxaparin(*) 40 MG/0.4 ML SYR SUBCUT SCH (20:56)
[2019-07-06] MEDS: Zolpidem TAB* 10 MG PO PRN (20:58)
[2019-07-07] MEDS: traMADol TAB* 50 MG PO SCH ×4 (03:03→20:47)
[2019-07-07 08:34] LABS: EGFR African American 60.2 (>60); EGFR Non-African American 49.7 (>60)
[2019-07-07] MEDS: Docusate CAP* 100 MG PO SCH (08:53)
[2019-07-07] MEDS: Escitalopram * 10 MG TAB PO SCH (08:54)
[2019-07-07] MEDS: Folic Acid TAB* 1 MG PO SCH (08:54)
[2019-07-07] MEDS: Aspirin 81 mg CHEW TAB* 81 MG TAB.CHEW PO SCH (08:54)
[2019-07-07] MEDS: Metoprolol Tartrate TAB* 100 MG TAB PO SCH ×2 (08:54→20:48)
[2019-07-07] MEDS: Hydrocodone/Acetamin 10/325 MG 1 TAB PO SCH ×4 (08:55→20:48)
--- NOTE | 2019-07-07 12:54 | PN ---
Subjective Date of Service: 07/07/19 Interval History: Ms. Joyce c/o LE edema. She states she takes diuretics as needed for swelling. She has an occasional cough. She states she has been up to [place] with and without walker and is doing well with ambulation. She feels improvement in mood from admission. No other complaints today. Objective Active Medications: Hydrocodone Bitart/Acetaminophen ([place] 10/325 (Nf)) 1 tab PO QID [facility] Last Admin: 07/07/19 08:55 Dose: 1 tab Aspirin (Aspirin 81 Mg Chew Tab*) 81 mg PO DAILY [facility] Last Admin: 07/07/19 08:54 Dose: 81 mg Atorvastatin Calcium (Lipitor*) 80 mg PO 1700 [facility] Last Admin: 07/06/19 18:02 Dose: 80 mg Docusate Sodium (Colace Cap*) 100 mg PO DAILY [facility] Last Admin: 07/07/19 08:53 Dose: 100 mg Enoxaparin Sodium (Lovenox(*)) 40 mg SUBCUT BEDTIME [facility] Last Admin: 07/06/19 20:56 Dose: 40 mg Escitalopram Oxalate (Lexapro *) 10 mg PO DAILY [facility] Last Admin: 07/07/19 08:54 Dose: 10 mg Folic Acid (Folvite Tab*) 1 mg PO DAILY [facility] Last Admin: 07/07/19 08:54 Dose: 1 mg Metoprolol Tartrate (Lopressor Tab*) 100 mg PO BID [facility] Last Admin: 07/07/19 08:54 Dose: 100 mg Tramadol HCl (Ultram*) 50 mg PO Q6H [facility] Last Admin: 07/07/19 08:54 Dose: 50 mg Zolpidem Tartrate (Ambien Tab*) 10 mg PO BEDTIME PRN PRN Reason: SLEEP Last Admin: 07/06/19 20:58 Dose: 10 mg Vital Signs: Temp Pulse Resp BP Pulse Ox 97.8 F 56 16 121/68 97 07/07/19 07:10 07/07/19 07:10 07/07/19 08:55 07/07/19 07:10 07/07/19 07:10 Oxygen Devices in Use Now: None Appearance: Ms. Joyce is an obese elderly white woman who is sitting up in bed eating lunch. NAD. Eyes: No Scleral Icterus, PERRLA Ears/Nose/Mouth/Throat: NL Teeth, Lips, Gums, Clear Oropharnyx, Mucous Membranes Moist Neck: NL Appearance and Movements; NL JVP, Trachea Midline Respiratory: Symmetrical Chest Expansion and Respiratory Effort, Clear to Auscultation Cardiovascular: NL Sounds; No Murmurs; No JVD, RRR Abdominal: NL Sounds; No Tenderness; No Distention, No Hepatosplenomegaly Extremities: No Clubbing, Cyanosis, - - b/l LE pedal edema 2+ pitting Neurological: Alert and Oriented x 3 Result Diagrams: 07/06/19 05:32 07/07/19 08:04 Microbiology and Other Data: Microbiology 07/02/19 00:15 Urine Culture - Preliminary Urine Escherichia Coli 07/01/19 21:40 Aerobic Blood Culture - Preliminary Blood Venous No Growth Day 1 Anaerobic Blood Culture - Preliminary No Growth Day 1 07/01/19 21:40 Aerobic Blood Culture - Preliminary Blood Venous No Growth Day 1 Anaerobic Blood Culture - Preliminary No Growth Day 1 Assess/Plan/Problems-Billing Assessment: 74yof PMHx CAD 6 vessel CABG, HLD, anxiety, diagnosed with pre-diabetes treated with Metformin presented to the ER with generalized weakness, elevated troponins , ANTWAN, lactic acidosis. - Patient Problems (1) Generalized weakness Comment: -pt presents with generalized weakness, decreased appetite -likely due to deconditioning with superimposed dehydration and depression -PT working with patient- recommend [facility] -continue PT/OT -placement pending (2) Lower extremity edema Comment: -b/l LE edema -likely result of IVF -IV lasix 20 x1 dose (3) ANTWAN (acute kidney injury) Comment: -pt presents with ANTWAN which improved with IV hydration -suspect pre-renal due to dehydration -likely with underlying CDK stage 2 (4) Elevated troponin Comment: -troponin elevated, but stable at 0.08-0.09 -EKG with mild ST depression I, II, avF, V2-V3 -denies CP -Echo: EF 65-70% without evidence of diastolic dysfunction or RWMA -ST: no defects or RWMA, low risk -cardiology consulted; thank you for recommendations, as follows: no indication for med change, cardiac status appears stable (5) Lactic acidosis Comment: -resolved; lactic acid 1.1 -pt presents with lactic acidosis -no source of infection -afebrile, mild leukocytosis (resolved) -BC NGTD -suspect metformin; d/c metformin (6) Depression Comment: -frequently tearful throughout interview -suggest SSRI, and patient is agreeable, but concerned, as she has h/o nightmares with anti-depressants -continue Lexapro (7) Thrombocytopenia Comment: -no signs of bleeding -probably partially dilutional -continue to monitor (8) Abnormal urinalysis Comment: -1+ LE, 1+ bacteria -UC shows E. coli, moderated CFU -pt asymptomatic -suspect colonization, therefore treatment not indicated (9) Eviction from dwelling Comment: -pt reports she is in process of being evicted -SW involved in care (10) Pre-diabetes Comment: -recent HA1c 6.0 -reportedly on metformin for pre-diabetes -will d/c this medication, as it is the suspected cause of lactic acidosis -no indication for need for furhter medication at this time -follow up with primary care provider for repeat HA1c in future (11) CAD (coronary artery disease) Comment: -continue home asa, atorvastatin, metoprolol (12) Hyperlipidemia Comment: -continue atorvastatin (13) DVT prophylaxis Comment: -HSQ (14) Full code status Status and Disposition: Inpatient. Plan for d/c to [facility].
[2019-07-07] MEDS ORDERED: Furosemide IV* 10 MG/ML 2 ML VIAL (20 MG) IV ONE (12:56)
[2019-07-07] MEDS: Atorvastatin* 80 MG TAB PO SCH (18:18)
[2019-07-07] MEDS: Enoxaparin(*) 40 MG/0.4 ML SYR SUBCUT SCH (20:52)
[2019-07-07] MEDS: Zolpidem TAB* 10 MG PO PRN (22:23)
[2019-07-08] MEDS: traMADol TAB* 50 MG PO SCH ×4 (04:33→20:29)
[2019-07-08 06:52] LABS: ABS Eosinophils 0.3 10^3/ul (0-0.6); ABS Lymphocytes 2.5 10^3/ul (1.0-4.8); ABS Monocytes 0.9 10^3/ul (0-0.8); ABS Neutrophils 2.7 10^3/ul (1.5-7.7); Eosinophil % 5.1 %; Hematocrit 34 % (35-47); Hemoglobin 11.5 g/dL (12.0-16.0); Lymphocyte % 38.5 %; Mean Corpuscular HGB Conc 34 g/dL (31-36); Mean Corpuscular Hemoglobin 35 pg (27-31); Mean Corpuscular Volume 103 fL (80-97); Mean Platelet Volume 8.9 fL (7.4-10.4); Platelet Count 119 10^3/uL (150-450); Red Blood Count 3.28 10^6 /uL (3.70-4.87); Red Cell Distribution Width 14 % (10-15); White Blood Count 6.5 10^3/uL (3.5-10.8)
[2019-07-08] MEDS: Hydrocodone/Acetamin 10/325 MG 1 TAB PO SCH ×4 (08:54→22:56)
[2019-07-08] MEDS: Docusate CAP* 100 MG PO SCH (08:55)
[2019-07-08] MEDS: Folic Acid TAB* 1 MG PO SCH (08:55)
[2019-07-08] MEDS: Metoprolol Tartrate TAB* 100 MG TAB PO SCH ×3 (08:55→22:55)
[2019-07-08] MEDS: Escitalopram * 10 MG TAB PO SCH (08:55)
[2019-07-08] MEDS: Aspirin 81 mg CHEW TAB* 81 MG TAB.CHEW PO SCH (08:55)
--- NOTE | 2019-07-08 15:44 | PN ---
Subjective Date of Service: 07/08/19 Interval History: Reports headache and not doing so well. Objective Active Medications: Hydrocodone Bitart/Acetaminophen ([place] 10/325 (Nf)) 1 tab PO QID [facility] Last Admin: 07/08/19 13:28 Dose: 1 tab Aspirin (Aspirin 81 Mg Chew Tab*) 81 mg PO DAILY [facility] Last Admin: 07/08/19 08:55 Dose: 81 mg Atorvastatin Calcium (Lipitor*) 80 mg PO 1700 [facility] Last Admin: 07/07/19 18:18 Dose: 80 mg Docusate Sodium (Colace Cap*) 100 mg PO DAILY [facility] Last Admin: 07/08/19 08:55 Dose: 100 mg Enoxaparin Sodium (Lovenox(*)) 40 mg SUBCUT BEDTIME [facility] Last Admin: 07/07/19 20:52 Dose: 40 mg Escitalopram Oxalate (Lexapro *) 10 mg PO DAILY [facility] Last Admin: 07/08/19 08:55 Dose: 10 mg Folic Acid (Folvite Tab*) 1 mg PO DAILY [facility] Last Admin: 07/08/19 08:55 Dose: 1 mg Metoprolol Tartrate (Lopressor Tab*) 100 mg PO BID [facility] Last Admin: 07/08/19 08:55 Dose: 100 mg Torsemide (Torsemide) 5 mg PO DAILY [facility] Tramadol HCl (Ultram*) 50 mg PO Q6H [facility] Last Admin: 07/08/19 15:10 Dose: 50 mg Zolpidem Tartrate (Ambien Tab*) 10 mg PO BEDTIME PRN PRN Reason: SLEEP Last Admin: 07/07/19 22:23 Dose: 10 mg Vital Signs - 8 hr 07/08/19 07/08/19 07/08/19 08:54 11:19 11:36 Temperature 98.0 F Pulse Rate 53 Respiratory 20 20 20 Rate Blood Pressure 122/64 (mmHg) O2 Sat by Pulse 98 Oximetry 07/08/19 07/08/19 13:28 15:10 Temperature Pulse Rate Respiratory 20 18 Rate Blood Pressure (mmHg) O2 Sat by Pulse Oximetry Oxygen Devices in Use Now: None Eyes: No Scleral Icterus Ears/Nose/Mouth/Throat: NL Teeth, Lips, Gums Neck: NL Appearance and Movements; NL JVP Respiratory: Symmetrical Chest Expansion and Respiratory Effort Cardiovascular: NL Sounds; No Murmurs; No JVD Abdominal: NL Sounds; No Tenderness; No Distention Extremities: - - sig LE edema Result Diagrams: 07/08/19 06:02 07/07/19 08:04 Microbiology and Other Data: Microbiology 07/02/19 00:15 Urine Culture - Preliminary Urine Escherichia Coli 07/01/19 21:40 Aerobic Blood Culture - Preliminary Blood Venous No Growth Day 1 Anaerobic Blood Culture - Preliminary No Growth Day 1 07/01/19 21:40 Aerobic Blood Culture - Preliminary Blood Venous No Growth Day 1 Anaerobic Blood Culture - Preliminary No Growth Day 1 Assess/Plan/Problems-Billing Assessment: 74yof PMHx CAD 6 vessel CABG, HLD, anxiety, diagnosed with pre-diabetes treated with Metformin presented to the ER with generalized weakness, elevated troponins , ANTWAN, lactic acidosis. 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 coli, moderated CFU -pt asymptomatic -suspect colonization, therefore treatment not indicated (4) CAD (coronary artery disease) Current Visit: Yes Status: Acute Code(s): I25.10 - ATHSCL HEART DISEASE OF [place] CORONARY ARTERY W/O ANG PCTRS SNOMED Code(s): 77434066 Comment: -continue home asa, atorvastatin, metoprolol (5) DVT prophylaxis Current Visit: Yes Status: Acute Code(s): Z29.9 - ENCOUNTER FOR PROPHYLACTIC MEASURES, UNSPECIFIED SNOMED Code(s): 027183989 Comment: -HSQ (6) Depression Current Visit: Yes Status: Acute Code(s): F32.9 - MAJOR DEPRESSIVE DISORDER , SINGLE EPISODE, UNSPECIFIED SNOMED Code(s): 84521574 Comment: -frequently tearful throughout interview -suggest SSRI, and patient is agreeable, but concerned, as she has h/o nightmares with anti-depressants -continue Lexapro (7) Elevated troponin Current Visit: Yes Status: Acute Code(s): R79.89 - OTHER SPECIFIED ABNORMAL FINDINGS OF BLOOD CHEMISTRY SNOMED Code(s): 513375048 Comment: -troponin elevated, but stable at 0.08-0.09 -EKG with mild ST depression I, II, avF, V2-V3 -denies CP -Echo: EF 65-70% without evidence of diastolic dysfunction or RWMA -ST: no defects or RWMA, low risk -cardiology consulted; thank you for recommendations, as follows: no indication for med change, cardiac status appears stable (8) Eviction from dwelling Current Visit: Yes Status: Acute Code(s): Z59.8 - OTHER PROBLEMS RELATED TO HOUSING AND ECONOMIC CIRCUMSTANCES SNOMED Code(s): 276648200 Comment: -pt reports she is in process of being evicted -SW involved in care (9) Lactic acidosis Current Visit: Yes Status: Acute Code(s): E87.2 - ACIDOSIS SNOMED Code(s) : 34006916 Comment: -resolved; -pt presents with lactic acidosis -no source of infection -afebrile, mild leukocytosis (resolved) -BC NGTD -suspect metformin; d/c metformin (10) Lower extremity edema Current Visit: Yes Status: Acute Code(s): R60.0 - LOCALIZED EDEMA SNOMED Code(s): 497966620 Comment: -b/l LE edema -likely result of IVF -IV lasix 20 x1 dose yesterday -Will start Torsemide 5 mg po daily home dose and monitor Cr trend Status and Disposition: Inpatient. Plan for d/c to [facility] likely in am.
[2019-07-08] MEDS: Atorvastatin* 80 MG TAB PO SCH (17:08)
[2019-07-08] MEDS: Torsemide TAB 10 MG PO SCH (17:08)
[2019-07-08] MEDS: Enoxaparin(*) 40 MG/0.4 ML SYR SUBCUT SCH (20:28)
[2019-07-08] MEDS: Zolpidem TAB* 10 MG PO PRN (22:55)
[2019-07-09 05:54] LABS: ABS Basophils 0.1 10^3/ul (0-0.2); ABS Eosinophils 0.3 10^3/ul (0-0.6); ABS Lymphocytes 2.5 10^3/ul (1.0-4.8); ABS Monocytes 0.9 10^3/ul (0-0.8); ABS Neutrophils 2.6 10^3/ul (1.5-7.7); Hematocrit 33 % (35-47); Hemoglobin 11.3 g/dL (12.0-16.0); Lymphocyte % 38.8 %; Mean Corpuscular HGB Conc 34 g/dL (31-36); Mean Corpuscular Hemoglobin 35 pg (27-31); Mean Corpuscular Volume 103 fL (80-97); Mean Platelet Volume 8.4 fL (7.4-10.4); Nucleated Red Blood Cells % 0.1; Platelet Count 111 10^3/uL (150-450); Red Blood Count 3.22 10^6 /uL (3.70-4.87); Red Cell Distribution Width 14 % (10-15); White Blood Count 6.4 10^3/uL (3.5-10.8)
[2019-07-09 06:04] LABS: Calcium 8.7 mg/dL (8.6-10.3); Potassium 4.6 mmol/L (3.5-5.0)
[2019-07-09 06:09] LABS: EGFR African American 62.2 (>60); EGFR Non-African American 51.4 (>60)
[2019-07-09] MEDS: Hydrocodone/Acetamin 10/325 MG 1 TAB PO PRN ×2 (06:20→20:58)
[2019-07-09] MEDS: Metoprolol Tartrate TAB* 100 MG TAB PO SCH ×2 (10:11→20:58)
[2019-07-09] MEDS: Torsemide TAB 10 MG PO SCH (10:11)
[2019-07-09] MEDS: Aspirin 81 mg CHEW TAB* 81 MG TAB.CHEW PO SCH (10:11)
[2019-07-09] MEDS: Docusate CAP* 100 MG PO SCH (10:11)
[2019-07-09] MEDS: Folic Acid TAB* 1 MG PO SCH (10:11)
[2019-07-09] MEDS: Escitalopram * 10 MG TAB PO SCH (10:11)
--- NOTE | 2019-07-09 14:07 | DS ---
DATE OF ADMISSION: 07/02/2019. DATE OF DISCHARGE: 07/09/2019. PRIMARY DIAGNOSES: 1. Lactic acidosis. 2. Significant generalized weakness. 3. Elevated troponin. 4. Depression. 5. Acute kidney injury. SECONDARY DIAGNOSES: 1. Coronary artery disease with successful bypass graft thought to be secondary to homocysteinemia. 2. Homocysteinemia. 3. Hyperlipidemia. 4. Anxiety. 5. Insomnia. 6. Congestive heart failure. 7. Chronic back pain with multiple opiate based pain medications. 8. Prediabetes, on Metformin at home. 9. History of ANTWAN secondary to nonsteroidals in 2012. 10. 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 PAST SURGICAL HISTORY: 1. Coronary artery bypass graft. 2. Left knee arthroscopy. 3. A dropped lung in the right after bypass surgery in 2000. HOSPITAL COURSE: This 74-year-old female with a past medical history of morbid obesity, coronary art deanne disease, status post CABG, and hereditary homocysteinemia who was in her usual state of health [facility] about April. The senior housing facility threatened to evict her and the patient has also bee n more depressed. Prior to her hospitalization, the patient was also diagnosed with possible pneumoni a and was started on Amoxicillin. The patient came in to the hospital with generalized weakness, wor sening back pain, back cramping, nausea, vomiting, and not feeling well with malaise. Please refer t o the history and physical dictated by Dr. Parekh on 07/02/2019 for full details. In the ER, the patient's lactic acid was noted to be elevated at 3.1, creatinine was elevated at 2.1. The patient had a CT of the chest, abdomen, and pelvis and a gallbladder ultrasound in light of her symptoms. Her gallbladder ultrasound on 07/01/2019 showed no acute sonographic pathology. The dede ent had a CT of the chest, abdomen, and pelvis on 07/01/[address] which showed [address] pathology of th e chest, colonic diverticulosis without evidence of acute diverticulitis, no other acute CT pathology . Please refer to the detailed CT report for full details. For her acute kidney injury, the patient was started on IV hydration. Her Lisinopril and Hydrochlorothiazide were also held. Her lactic aci dosis was thought to be secondary to dehydration and possibly also from Metformin that she was on. H er Metformin was held and IV hydration was continued. The patient was noted to have mildly elevated troponins with her troponins noted to be in the 0.08 ra nge. The patient also had a significant cardiac history as described above. To evaluate her heart f unction better, an echocardiogram was obtained on 07/02/2019 which showed that her ejection fraction was 65 to 70 percent, trace to mild regurgitation, no evidence of stenosis. The patient was seen in consultation by Dr. Mccabe on 07/02/2019 for coronary artery disease weakness and abnormal troponin. The patient went on to have a nuclear medicine stress test on 07/02/2019 which showed no fixed or rev ersible perfusion defect identified with normal ejection fraction. The patient was cleared from the cardiology standpoint and no further changes were recommended. The patient continued to work with PT/OT and continued through her hospital course. The patient's Metoprolol was continued; however, her Lisinopril, Hydrochlorothiazide and her Amlodipine were held during her hospital stay. With only this, her blood pressures have been noted to be in the 110 range. Her kidney function has made a full recovery and creatinine at the time of discharge was noted to be 1.05. With respect to her hypertension, the patient's Metoprolol has been continued as described above. He r home Amlodipine and Lisinopril Hydrochlorothiazide are currently on hold. The patient can likely b e restarted on her Lisinopril in a few days if her kidney function stays stable as she has recovered from her renal insult in the setting of dehydration and the patient may benefit from being on Lisinop ril in the setting of her coronary artery disease. This can be done as an outpatient if her blood pr essure improves. Will hold off on the Amlodipine as her blood pressure continues to be in the 110s w ith only Metoprolol. Her home Torsemide dose at 5 mg once a day has been restarted. Recommend check ing a BMP in five to seven days and deciding on further plan. The patient is not short of breath and hemodynamically stable. With respect to her prediabetes, her Metformin is currently on hold in the setting of lactic acidosis . Her hemoglobin A1c is noted to be 6 at this time and the patient tells me that she has prediabete s. Her blood sugar readings in the hospital have been appropriate. Further plans on restarting oral hypoglycemic medications per her outpatient primary care doctor/physician at the [facility] based on progress. From the cardiac standpoint, the patient appears to be stable. The patient's Metoprolol has been con tinued and can consider reinitiation of RANJIT as an outpatient. The patient's aspirin and statin have been continued. With respect to her renal function, this has improved. Overall, the patient would benefit from rehabilitation for her weakness. 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 Her Tramadol dose has been de creased during her hospital stay from 100 mg to 50 mg. The patient has been tolerating this well wit h no problems and can be uptitrated if needed. Vitals and labs noted to be stable at the time of discharge. Vitals: Temperature 97.8, pulse 57, re spiratory rate 17, oxygen saturation 97 percent on room air, blood pressure 114/41. PHYSICAL EXAMINATION: HEENT: NC/AT. Heart: S1, S2 present. Regular at the time of exam. Lungs: Clear to auscultation. Abdomen: Soft, distended. No rebounded, no guarding. Extremities: Noted t o have bilateral lower extremity edema which is improving. LABORATORY DATA AT THE TIME OF DISCHARGE: Sodium 139, potassium 4.6, chloride 108, CO2 28, BUN 22, c reatinine 1.05; WBC 6.4, hemoglobin 11.3, hematocrit 33, platelets noted to be 111. MEDICATIONS AT THE TIME OF DISCHARGE: 1. Tramadol 50 mg p.o. q.6 hours prn. 2. Atorvastatin 80 mg p.o. at bedtime. 3. Ambien 10 mg at bedtime prn. 4. Colace 100 mg p.o. daily. 5. Folic acid one tab p.o. daily. 6. Aspirin 81 mg p.o. daily. 7. Torsemide 5 mg p.o. daily. 8. Metoprolol 100 mg p.o. b.i.d. 9. [place] 10/325 one tab p.o. q.i.d. prn for pain. 10. Lexapro 10 mg p.o. daily. Please note, the patient was noted to be significantly depressed during her hospital stay. The patie nt appears to have an ALLERGY TO FLUOXETINE AND SERTRALINE. The patient was started on Lexapro durin g her hospital stay and so far has tolerated it well with no problems. DISPOSITION: [facility]. CONDITION ON DISCHARGE: Stable. TIME SPENT: Total time spent on discharge is equal to 50 minutes. [id number]/[facility] #: [id number]
[2019-07-09] MEDS: Atorvastatin* 80 MG TAB PO SCH (17:11)
[2019-07-09] MEDS: Enoxaparin(*) 40 MG/0.4 ML SYR SUBCUT SCH (20:59)
[2019-07-09] MEDS ORDERED: Zolpidem TAB* 10 MG PO PRN (21:00)
[2019-07-09] MEDS: traMADol TAB* 50 MG PO PRN (23:33)
[2019-07-10] MEDS: Metoprolol Tartrate TAB* 100 MG TAB PO SCH (08:14)
[2019-07-10] MEDS: traMADol TAB* 50 MG PO PRN (08:14)
[2019-07-10] MEDS: Escitalopram * 10 MG TAB PO SCH (08:14)
[2019-07-10] MEDS: Folic Acid TAB* 1 MG PO SCH (08:15)
[2019-07-10] MEDS: Docusate CAP* 100 MG PO SCH (08:15)
[2019-07-10] MEDS: Aspirin 81 mg CHEW TAB* 81 MG TAB.CHEW PO SCH (08:15)
[2019-07-10] MEDS: Torsemide TAB 10 MG PO SCH (08:15)
--- NOTE | 2019-07-10 09:38 | DS ---
DISCHARGE SUMMARY ADDENDUM DATE OF ADMISSION: 07/02/19 DATE OF DISCHARGE: 07/10/19 Please refer to discharge summary dictated yesterday, 07/09/19, for full details. No changes to patient's condition. Patient is being discharged to [place] today. Please note a prescription for Tramadol and hydrocodone acetaminophen that the patient was taking at home has been sent to [facility] for 10 days. Patient reports that she was on 100 mg of Tramadol at home for many years; hence, the dose has been updated. CONDITION: Noted to be stable at time of discharge. PHYSICAL EXAM: HEENT - NC/AT. Heart - S1, S2 present. Regular rate at the time of exam. Lungs - clear to auscultation. Abdomen - soft. Extremities - edema improving. Neuro - alert and oriented. MEDICATION LIST: As dictated yesterday. CONDITION: Stable. DISPOSITION: [place]. TOTAL TIME SPENT ON DISCHARGE: 45 minutes. [id number]/[facility] #: [id number] MTDD
[2019-07-10 14:03] VITALS: BP 119/68
== END 2019-07-10 14:00 | DRG 683 ==
LOC: ED 20:15 → MEDTELE 07-02 02:46
PROVIDERS: ADMIT Internal Medicine; ATTEND Internal Medicine
PROC: 4A02XM4 Measurement of Cardiac Total Activity, External Approach (ICD-10-PCS; principal; 2019-07-02)
DX: N17.9 Acute kidney failure, unspecified (principal); E87.2 Acidosis; Z68.42 Body mass index [BMI] 45.0-49.9, adult; E86.0 Dehydration; J45.909 Unspecified asthma, uncomplicated; I25.10 Atherosclerotic heart disease of native coronary artery without angina pectoris; M19.90 Unspecified osteoarthritis, unspecified site; R79.89 Other specified abnormal findings of blood chemistry; E78.5 Hyperlipidemia, unspecified; F41.9 Anxiety disorder, unspecified; I50.9 Heart failure, unspecified; G89.29 Other chronic pain; M54.9 Dorsalgia, unspecified; F32.9 Major depressive disorder, single episode, unspecified; D72.829 Elevated white blood cell count, unspecified; D69.6 Thrombocytopenia, unspecified; I11.0 Hypertensive heart disease with heart failure; R60.0 Localized edema; G47.00 Insomnia, unspecified; R73.03 Prediabetes; T38.3X5A Adverse effect of insulin and oral hypoglycemic [antidiabetic] drugs, initial encounter; E66.01 Morbid (severe) obesity due to excess calories; Z88.6 Allergy status to analgesic agent; Z88.2 Allergy status to sulfonamides; Z88.8 Allergy status to other drugs, medicaments and biological substances; Z85.42 Personal history of malignant neoplasm of other parts of uterus; I25.2 Old myocardial infarction; Z95.1 Presence of aortocoronary bypass graft; Z88.4 Allergy status to anesthetic agent; Y92.9 Unspecified place or not applicable; Z79.891 Long term (current) use of opiate analgesic; Z79.82 Long term (current) use of aspirin
CPT/HCPCS: 36415; 71046; 71250; 74176; 76705; 78452; 80048; 80053; 80061; 81003; 81015; 82565; 83036; 83605; 83735; 84443; 84484; 85025; 85060; 85610; 85652; 86140; 87040; 87077; 87086; 87186; 93005; 93017; 96374; 99284; A9270-GY; A9502; J0280; J0696; J1644; J1650; J1940; J2405; J2785